=== PATIENT | female | born 1950 | race Two or more races ===

== ENCOUNTER 2019-07-10 22:00 | Emergency (ER) | payer MEDICARE, MEDICAID ==
[~2019-07-10] VITALS: Ht 165.1 cm; Wt 74.8 kg
[2019-07-10] MEDS ORDERED: cloNIDine HCL 0.1 MG TAB PO ONE (22:15)
[2019-07-10 23:08] LABS: Basophils # (auto) 0.1 uL; Eosinophils # (auto) 0.2 uL; Eosinophils % (auto) 3.4 % (0.0-7.0); Hematocrit 36.5 % (36.0-46.0); Hemoglobin 12.2 g/dL (12.2-16.2); Lymphocytes # (auto) 1.2 uL; Lymphocytes % (auto) 24.4 % (10.0-50.0); Mean Corpuscular Hemoglobin 31.5 pg (28.0-32.0); Mean Corpuscular Hgb Conc. 33.4 g/dL (32.0-36.0); Mean Corpuscular Volume 94.4 fL (80.0-100.0); Monocytes # (auto) 0.4 uL; Monocytes % (auto) 9.2 % (0.0-12.0); Neutrophils # (auto) 2.9 uL; Platelet Count (auto) 240 10^3/uL (140-450); Red Blood Cells 3.87 10^6/uL (4.0-5.20); Red Cell Distribution Width 12.9 % (11.8-14.3); White Blood Cell 4.8 10^3/uL (4.4-10.8)
[2019-07-10 23:28] LABS: Alanine Aminotransferase 19 U/L (13-56); Albumin 3.6 g/dL (3.4-5.0); Anion Gap 7 (5-15); Aspartate Aminotransferase 24 U/L (15-37); BUN/Creatinine Ratio 31.5; Blood Urea Nitrogen 23 mg/dL (7-18); Calcium 8.2 mg/dL (8.5-10.1); Carbon Dioxide 25 mmol/L (21-32); Chloride 109 mmol/L (98-107); GFR African American 101 mL/min; GFR Non-African American 84 mL/min; Glucose 175 mg/dL (74-106); Magnesium 2.1 mg/dL (1.6-2.6); Potassium 3.4 mmol/L (3.5-5.1); Sodium 141 mmol/L (136-145)
[2019-07-10 23:30] LABS: INR 1.01 (0.9-1.15); Partial Thromboplastin Time 26.8 sec (23.64-32.05)
[2019-07-10 23:33] LABS: Alkaline Phosphatase 63 U/L (45-117); Bilirubin, Total 0.2 mg/dL (0.2-1.0); Total Protein 7.2 g/dL (6.4-8.2)
[2019-07-10 23:37] LABS: Urine Bacteria MANY /hpf (None Seen); Urine Blood 1+ /uL (Negative); Urine Specific Gravity 1.008 (1.001-1.035); Urine WBC 9 /hpf (0 - 5)
[2019-07-11] MEDS ORDERED: SODIUM CHLORIDE 0.9% 1,000 ML IV ONE (04:15)
[2019-07-11] MEDS ORDERED: ACETAMINOPHEN 325 MG TAB PO ONE (07:30)
[2019-07-11] MEDS ORDERED: cefTRIAXone 1GM/50ML D5W 50 ML IV ONE (07:45)
[2019-07-11] MEDS ORDERED: POTASSIUM EFFERVESENT TAB 25 MEQ PO ONE (07:45)
[2019-07-11 09:11] VITALS: BP 115/62
== END 2019-07-11 09:25 | disposition home or self-care (01) ==
LOC: EDBD 22:00 → ER 22:13
DX: G45.9 Transient cerebral ischemic attack, unspecified (principal); N39.0 Urinary tract infection, site not specified; E87.6 Hypokalemia; R73.9 Hyperglycemia, unspecified; I10 Essential (primary) hypertension
CPT/HCPCS: 36415; 70450; 71045; 80053; 81001; 83605; 83735; 83880; 84484; 85025; 85610; 85730; 93005; 96365; 99284; J0696